=== PATIENT | female | born 1940 | race Two or more races ===

== ENCOUNTER 2024-10-22 11:04 | Emergency (ER) | payer MEDICARE, OTHER, SELFPAY ==
[2024-10-22 14:27] VITALS: BMI 28.0
[2024-10-22 14:32] VITALS: BP 155/81
--- NOTE | 2024-10-22 14:54 | ED.GENMED ---
History of Present Illness
General
Chief Complaint: Cold/Flu/URI Symptoms
Source: patient and other (Patient's grandson is in the room and translating patient's Japanese into Sinhala for me)
Exam Limitations: none
Time Seen by Provider: 10/22/24 14:28
Nursing documentation reviewed up to this point in time: agreed with
History of Present Illness
History of Present Illness:
Patient is a very pleasant 84-year-old female who reports that ever since October 10, which was 12 days ago, she has been experiencing occasional chills, decreased appetite, fatigue, cough, sore throat, and nausea. Patient reports that she is
guessing she contracted COVID but denies travel history and never took a COVID test. Patient also reports vomiting which is now resolved and mild diarrhea which is now resolved. She denies blood in her stool. She denies abdominal pain. Patient
reports she still feels generalized weakness and chills.
Past History
Past History
ED Past Medical History: GERD
ED Past Surgical History: Cholecystectomy
Social History
Tobacco: Non-smoker
Alcohol: Other
Drug: None
Personal: Single
Living: alone
Employment: Not employed
Family History
Family History: Other
Review of Systems
Review of Systems
Allergies reviewed?: Yes
All Other Systems: ROS reviewed and negative except as documented in HPI and ROS
Constitutional: Reports fatigue and chills; Denies fever
EENT: Reports sore throat
Respiratory: Reports cough; Denies trouble breathing
Cardiac: Reports no symptoms
ABD/GI: Reports nausea, vomiting, diarrhea and anorexia
: Reports no symptoms
Musculoskeletal: Reports no symptoms
Skin: Reports no symptoms
Neurological: Reports no symptoms
Endocrine: Reports no symptoms
Hematologic/Lymphatic: Reports no symptoms
Psychiatric: Reports no symptoms
Phy Exam
Physical Exam
Physical Exam:
Physical Exam
General: no apparent distress, not acutely ill. Appears nontoxic and well
Neck: supple. no meningeal signs. normal psoterior pharynx No pharyngeal erythema or exudate . No cervical lymphadenopathy
Heart: s1/s2 regular rate and rhythm, no murmur. equal radial pulses.
Lungs: no acute respiratory distress. clear bilaterally
Abdomen: normal bowel sounds. not tender. no CVAT
Neuro: alert and oriented. no focal neurological deficits
Skin: no rash
Psychiatric: well kept. interactive and cooperative
Extremities: no edema. no calf tenderness. negative homans. good distal pulses
Course
Orders/Labs/Results
Orders:
Orders
10/22/24 14:52
CR Chest - 2 Views Urgent
Comment:
Reason For Exam: cough
10/22/24 14:53
Electrocardiogram (*1) Urgent
Reason for Study: Chest Pain
EKG- Treatment ONCE
0.9% Sodium Chloride 1000 ml [Nss] 1,000 ml IV BOLUS
Ondansetron Injectable [Zofran] 4 mg IV NOW STA
10/22/24 14:58
COVID-19 Antigen Urgent
Source: Nasal Swab
Complete Blood Count/With Diff Urgent
Comprehensive Metabolic Panel Urgent
Lipase Urgent
Troponin I Urgent
Influenza A+B Rapid Molecular Urgent
ELSIE Source: Nasal Swab
Specimen Description:
10/22/24 17:13
Urinalysis Reflex To Culture Urgent
Date Specimen was Collected: 10/22/24
Time Specimen was Collected: 14:57
10/22/24 17:51
Doxycycline [Vibramycin] 100 mg PO NOW STA
Abnormal Lab Results
10/22/24
14:58
MCHC 32.9 L g/dL
(33.0-37.0)
Absolute Lymphs (auto) 1.1 L 10^3/uL
(1.2-3.4)
Lymphocytes % 19.3 L %
(20.5-51.1)
BUN 19 H mg/dl
(7-17)
Glucose 150 H mg/dl
(70-99)
Alkaline Phosphatase 127 H U/L
(38-126)
Total Protein 8.4 H g/dl
(6.3-8.2)
10/22/24 14:58
10/22/24 14:58
Vital Signs
Initial and Last Documented VS:
Initial Vital Signs
Temp Pulse Resp Pulse Ox
97.9 F 95 18 100
10/22/24 11:31 10/22/24 11:31 10/22/24 11:31 10/22/24 11:31
Last Documented Vital Signs
Temp Pulse Resp BP Pulse Ox
97.6 F 78 16 139/71 95
10/22/24 14:32 10/22/24 17:15 10/22/24 17:15 10/22/24 17:12 10/22/24 17:15
MDM/Problems Addressed
Differential Diagnosis Includes:
Acute viral illness such as influenza, COVID,
Acute dehydration
pneumonia
MDM/Problems Addressed:
Patient presents with subacute generalized weakness, cough, anorexia, nausea, vomiting
Chronic conditions affecting care: HTN
Acute Exacerbation and/or Progression of Chronic Illness:
Patient is acutely hypertensive, likely due to feeling nauseous and slightly anxious to be in the ED. There is no sign of severe headache, stroke or heart failure
*Radiology
Radiology exam reviewed: preliminary read by ED provider (Chest x-ray reviewed by me. Bilateral infiltrates) and radiology read reviewed
*Pulse Oximetry
SaO2: 96
Oxygen Mode of Delivery: Room air
Patient hypoxic: no
Comment: 96% on room air
*EKG
Interpreted by ED Provider?: Yes
Interpretation: abnormal
Comparison EKG: no comparison EKG present
Rate: normal
Rhythm: sinus
[place]: left axis deviation
Interval: first degree heart block
QRS Pattern: normal QRS
Ischemia: non-specific ST changes
*Critical Care Note
Total Time (30-74mins, 75-104mins- exclusive of procedures): Not Applicable
Data Reviewed
Source: patient and family
Update Note
Update Note:
Patient has been resting comfortably for hours without any vomiting or fever. She is breathing comfortably. She appears well-hydrated. Patient's chest x-ray shows a bilateral process. It is possible it is related to a viral pneumonia, however,
given patient's advanced age and reports of chills, decision made to treat with doxycycline for community-acquired pneumonia
ED Attending Note
-
Portions of this chart may have been created with voice recognition software.� Occasional wrong word or��sound alike� substitutions may have occurred due to the inherent limitations of voice recognition software.
Discharge Plan
Departure
Patient Disposition: Home (Routine Discharge)
Date of Disposition: 10/22/24
Time of Disposition: 17:52
Patient with high blood pressure during this ER visit?: Yes
Condition: Good
Covid-19: Negative COVID-19
Discharge Problem:
Pneumonia
Instructions: Pneumonia in adults - ED (DC), BLOOD PRESSURE
Prescriptions:
New
ondansetron 4 mg tablet,disintegrating
4 mg PO Q8H PRN (Reason: nausea and vomiting) Qty: 10 0RF
doxycycline hyclate 100 mg capsule
100 mg PO BID Qty: 13 0RF
Referrals:
Radha Sanz MD [Family Provider, Internal Medicine]
Interventions
Interventions:
*Risk Screen - Suicide Last Done: 10/22/24 14:28
*General Assessment Last Done: 10/22/24 14:28
*Neglect/Abuse Screening Last Done: 10/22/24 14:28
*ED- Fall Risk Assessment Last Done: 10/22/24 14:28
*ED COVID-19 Vaccine History Last Done: 10/22/24 14:28
ED- Pulmonary Assessment Last Done: 10/22/24 14:28
Discharge Date and Time
Print Language: STATELESS
[2024-10-22] MEDS: ZOFRAN 4 MG IV (15:09)
[2024-10-22] MEDS: NSS 1000 IV (15:09)
[2024-10-22 15:19] LABS: Hematocrit 38.6 % (37.0-47.0); Hemoglobin 12.7 g/dL (12.0-16.0); Mean Corp Hgb Conc. 32.9 g/dL (33.0-37.0); Mean Corpuscular Volume 84.5 fL (81.0-99.0); Nucleated Red Blood Cells % 0 %; Platelet Count 195 10^3/uL (130-400); Red Cell Dist. Width 14.1 % (11.5-14.5)
[2024-10-22 15:34] LABS: ALT (SGPT) 24 U/L (0-35); AST (SGOT) 27 U/L (14-36); Albumin 4.8 g/dl (3.5-5.0); Alkaline Phosphatase 127 U/L (38-126); Blood Urea Nitrogen 19 mg/dl (7-17); Calcium 9.9 mg/dl (8.4-10.2); Carbon Dioxide 25 mmol/L (22-30); Chloride 106 mmol/L (98-107); Estimated Creatinine Clearance 60 ml/min; Glucose 150 mg/dl (70-99); Lipase 74 U/L (23-300); Potassium 4.1 mmol/L (3.5-5.1); Sodium 140 mmol/L (135-145); Total Protein 8.4 g/dl (6.3-8.2); eGFR > 60.00
[2024-10-22 15:39] LABS: COVID-19 Antigen Negative (Negative)
[2024-10-22 15:46] LABS: Troponin I < 0.012 ng/ml
[2024-10-22 16:00] VITALS: BP 144/76
[2024-10-22 17:12] VITALS: BP 139/71
[2024-10-22 17:31] LABS: Urine Character Clear (Clear)
[2024-10-22 18:00] VITALS: BP 130/71
[2024-10-22] MEDS: VIBRAMYCIN 100 MG PO (18:05)
== END 2024-10-22 18:10 | disposition home or self-care (01) ==
LOC: EMR 11:04
PROVIDERS: EMERGENCY PHYSICIAN Emergency Medicine; FAMILY PHYSICIAN Internal Medicine
DX: J18.9 Pneumonia, unspecified organism (principal); I10 Essential (primary) hypertension; I44.0 Atrioventricular block, first degree; Z11.52 Encounter for screening for COVID-19
CPT/HCPCS: 96374; 96361; 99285; 71046; 80053; 81003; 83690; 84484; 85025; 87502; 87811; 93005